=== PATIENT | male | born 1985 | race Caucasian/White ===

== ENCOUNTER 2020-06-18 14:47 | Emergency (ER) | payer BC ==
--- NOTE | 2020-06-18 16:25 | RAD ---
XR Chest 1 View Portable History: Cough and shortness of breath Comparison: None. Findings: Abnormal perihilar and peripheral airspace opacities. No pneumothorax. No effusion. No acut e osseous abnormality. Impression: Moderate Covid pneumonia.
[2020-06-18 16:27] LABS: Hemoglobin 14.8 g/dL (14.0-18.0); Mean Corpuscular HGB CONC 36.1 g/dL (32.0-36.0); Mean Corpuscular Hemoglobin 31.1 pg (27.0-31.0); RBC Distribution Width 12.4 % (11.5-14.5); Red Blood Cell (RBC) Count 4.77 mill/uL (4.70-6.10); White Blood Cell (WBC) Count 5.3 thou/uL (4.8-10.8)
[2020-06-18 16:36] LABS: ALT (SGPT) 179 U/L (8-55); AST (SGOT) 183 U/L (5-34); Albumin 4.3 g/dL (3.5-5.0); Alkaline Phosphatase 49 U/L (40-110); Anion Gap 14 mmol/L (10-20); BUN (Urea Nitrogen) 7 mg/dL (8.9-20.6); Bilirubin, Total 0.4 mg/dL (0.2-1.2); Calc. Creatinine Clearance 0 mL/min (70-130); Calcium 8.7 mg/dL (7.8-10.44); Carbon Dioxide 25 mmol/L (22-29); Chloride 104 mmol/L (98-107); Globulin 3.3 g/dL (2.4-3.5); Glucose 142 mg/dL (70-105); Potassium 3.6 mmol/L (3.5-5.1); Protein, Total 7.6 g/dL (6.0-8.3); Sodium 139 mmol/L (136-145)
[2020-06-18 16:42] LABS: Band 11 % (5-11); Lymphocytes 15 % (21-51); MDiff Complete? YES; Mean Platelet Volume 9.3 fL (7.4-10.4); Monocytes 6 % (0-10); Myelocyte 1 % (0-0); Neutrophil 64 % (42-75); Platelet Count 106 thou/uL (130-400); Platelet Morphology Comment Appears Decreased; RBC Morphology Normal; Reactive Lymphocytes 3 % (0-10)
[2020-06-18] MEDS ORDERED: Acetaminophen 325 MG TAB ONE (17:27)
== END 2020-06-18 17:45 | disposition home or self-care (01) ==
LOC: ERS 14:47 → EDBD 14:47 → ERS 17:45
DX: U07.1 COVID-19 (principal); J12.82 Pneumonia due to coronavirus disease 2019; D69.6 Thrombocytopenia, unspecified; R74.01 Elevation of levels of liver transaminase levels
CPT/HCPCS: 36415; 71045; 80053; 85025; 93005

== ENCOUNTER 2020-06-20 01:01 | Inpatient (IN) | payer BC ==
[2020-06-20 01:48] LABS: #Lymphocytes 1.2 thou/uL (1.20-3.40); #Monocytes 0.4 thou/uL (0.11-0.59); #Neutrophils 5.2 thou/uL (1.40-6.50); %Basophils 0.5 % (0.0-1.0); %Eosinophils 0.1 % (0.0-10.0); %Lymphocytes 17.6 % (21.0-51.0); %Monocytes 6.4 % (0.0-10.0); %Neutrophils 75.4 % (42.0-75.0); Hemoglobin 14.8 g/dL (14.0-18.0); Mean Corpuscular HGB CONC 33.6 g/dL (32.0-36.0); Mean Corpuscular Hemoglobin 28.5 pg (27.0-31.0); Mean Corpuscular Volume 84.9 fL (78.0-98.0); Mean Platelet Volume 8.8 fL (7.4-10.4); Platelet Count 141 thou/uL (130-400); RBC Distribution Width 12.4 % (11.5-14.5); Red Blood Cell (RBC) Count 5.17 mill/uL (4.70-6.10); White Blood Cell (WBC) Count 6.9 thou/uL (4.8-10.8)
[2020-06-20 02:12] LABS: ALT (SGPT) 144 U/L (8-55); AST (SGOT) 188 U/L (5-34); Albumin 4.2 g/dL (3.5-5.0); Alkaline Phosphatase 50 U/L (40-110); Anion Gap 16 mmol/L (10-20); BUN (Urea Nitrogen) 12 mg/dL (8.9-20.6); Bilirubin, Total 0.6 mg/dL (0.2-1.2); Calc. Creatinine Clearance 0 mL/min (70-130); Calcium 9.9 mg/dL (7.8-10.44); Carbon Dioxide 29 mmol/L (22-29); Chloride 99 mmol/L (98-107); Globulin 3.6 g/dL (2.4-3.5); Glucose 133 mg/dL (70-105); Potassium 3.8 mmol/L (3.5-5.1); Protein, Total 7.8 g/dL (6.0-8.3); Sodium 140 mmol/L (136-145)
[2020-06-20] MEDS ORDERED: Lactated Ringer's 1,000 ML IV SCH (03:56)
[2020-06-20] MEDS ORDERED: Benzonatate 100 MG CAP PO PRN (03:56)
[2020-06-20] MEDS ORDERED: Acetaminophen 325 MG TAB PO PRN (03:56)
[2020-06-20 04:23] VITALS: BMI 31.0
[2020-06-20] MEDS: Acetaminophen 325 MG TAB PO SCH ×3 (08:03→19:30)
[2020-06-20] MEDS: Dexamethasone 4 MG TAB PO SCH (08:04)
[2020-06-20] MEDS: Ibuprofen 800 MG TAB PO SCH ×3 (08:05→23:46)
[2020-06-20] MEDS: Enoxaparin Sodium 40 MG/0.4 ML SYRINGE SC SCH (08:05)
[2020-06-20] MEDS ORDERED: Iopamidol 370 76% 100 ML VIAL ONE (11:06)
[2020-06-20 11:56] LABS: SARS-CoV-2 PCR by NAA DETECTED (NotDetected)
[2020-06-20] MEDS: Calcium Carbonate 500 MG ChewTAB PO PRN (23:45)
[2020-06-21] MEDS: Calcium Carbonate 500 MG ChewTAB PO PRN (04:24)
[2020-06-21] MEDS: Acetaminophen 325 MG TAB PO SCH ×4 (05:00→20:24)
[2020-06-21 05:18] LABS: #Lymphocytes 1.2 thou/uL (1.20-3.40); #Monocytes 0.5 thou/uL (0.11-0.59); #Neutrophils 10.8 thou/uL (1.40-6.50); %Basophils 0.1 % (0.0-1.0); %Lymphocytes 9.6 % (21.0-51.0); %Neutrophils 86.2 % (42.0-75.0); Hemoglobin 13.6 g/dL (14.0-18.0); Mean Corpuscular HGB CONC 31.5 g/dL (32.0-36.0); Mean Corpuscular Hemoglobin 27.2 pg (27.0-31.0); Mean Corpuscular Volume 86.1 fL (78.0-98.0); Mean Platelet Volume 8.9 fL (7.4-10.4); Platelet Count 173 thou/uL (130-400); RBC Distribution Width 12.6 % (11.5-14.5); Red Blood Cell (RBC) Count 5.01 mill/uL (4.70-6.10); White Blood Cell (WBC) Count 12.5 thou/uL (4.8-10.8)
[2020-06-21 05:40] LABS: ALT (SGPT) 137 U/L (8-55); AST (SGOT) 150 U/L (5-34); Albumin 3.7 g/dL (3.5-5.0); Alkaline Phosphatase 53 U/L (40-110); Anion Gap 18 mmol/L (10-20); BUN (Urea Nitrogen) 18 mg/dL (8.9-20.6); Bilirubin, Total 0.7 mg/dL (0.2-1.2); CRP (Inflammatory) 12.65 mg/dL (= or < 0.5); Calc. Creatinine Clearance 172 mL/min (70-130); Calcium 9.1 mg/dL (7.8-10.44); Carbon Dioxide 26 mmol/L (22-29); Chloride 101 mmol/L (98-107); Globulin 3.5 g/dL (2.4-3.5); Glucose 129 mg/dL (70-105); Potassium 3.5 mmol/L (3.5-5.1); Protein, Total 7.2 g/dL (6.0-8.3); Sodium 141 mmol/L (136-145)
[2020-06-21] MEDS ORDERED: Lidocaine 2% Viscous Solution 10 ML, Aluminum & Magnesium Hydroxide 30 ML SSW SCH (08:45)
[2020-06-21] MEDS ORDERED: Dexamethasone 4 mg/ml Vial SLOW IVP SCH (09:00)
[2020-06-21] MEDS ORDERED: Dexamethasone 20 MG/5 ML VIAL SLOW IVP SCH (09:00)
[2020-06-21] MEDS: Ibuprofen 800 MG TAB PO SCH ×3 (09:51→23:50)
[2020-06-21] MEDS: Enoxaparin Sodium 40 MG/0.4 ML SYRINGE SC SCH ×2 (09:55→20:25)
[2020-06-21] MEDS: Dexamethasone 4 MG TAB PO SCH (13:47)
[2020-06-21] MEDS ORDERED: REMDESIVIR (EUA) 200 MG in Sodium Chloride 0.9% 250 ML 210 ML IV SCH (17:15)
[2020-06-21] MEDS: Mometasone 200 MCG/Formoterol 5 MCG 120 PUFF INHALER INH SCH (18:20)
[2020-06-21] MEDS: Famotidine 20 MG TAB PO SCH (20:24)
[2020-06-21] MEDS: Dexamethasone 4 mg/ml Vial SLOW IVP SCH (20:25)
[2020-06-22] MEDS: Acetaminophen 325 MG TAB PO SCH ×4 (01:29→19:54)
[2020-06-22] MEDS: Benzonatate 100 MG CAP PO PRN ×2 (04:51→20:43)
[2020-06-22 05:39] LABS: ALT (SGPT) 139 U/L (8-55); AST (SGOT) 131 U/L (5-34); Albumin 3.4 g/dL (3.5-5.0); Alkaline Phosphatase 66 U/L (40-110); Anion Gap 15 mmol/L (10-20); BUN (Urea Nitrogen) 18 mg/dL (8.9-20.6); Bilirubin, Total 0.9 mg/dL (0.2-1.2); Calc. Creatinine Clearance 195 mL/min (70-130); Calcium 8.5 mg/dL (7.8-10.44); Carbon Dioxide 27 mmol/L (22-29); Chloride 104 mmol/L (98-107); Globulin 3.3 g/dL (2.4-3.5); Glucose 143 mg/dL (70-105); Potassium 3.9 mmol/L (3.5-5.1); Protein, Total 6.7 g/dL (6.0-8.3); Sodium 142 mmol/L (136-145)
[2020-06-22 05:42] LABS: ALT (SGPT) 138 U/L (8-55); AST (SGOT) 130 U/L (5-34); Albumin 3.4 g/dL (3.5-5.0); Alkaline Phosphatase 67 U/L (40-110); Bilirubin, Direct 0.5 mg/dL (0.1-0.3); Bilirubin, Total 0.8 mg/dL (0.2-1.2); CRP (Inflammatory) 9.73 mg/dL (= or < 0.5); Protein, Total 6.7 g/dL (6.0-8.3)
[2020-06-22 05:55] LABS: Band 16 % (5-11); Hemoglobin 13.5 g/dL (14.0-18.0); Lymphocytes 20 % (21-51); MDiff Complete? YES; Mean Corpuscular HGB CONC 32.8 g/dL (32.0-36.0); Mean Corpuscular Hemoglobin 28.3 pg (27.0-31.0); Mean Corpuscular Volume 86.2 fL (78.0-98.0); Mean Platelet Volume 9.1 fL (7.4-10.4); Monocytes 9 % (0-10); Neutrophil 55 % (42-75); Platelet Count 211 thou/uL (130-400); Platelet Morphology Comment Appears Adequate; RBC Distribution Width 12.4 % (11.5-14.5); Red Blood Cell (RBC) Count 4.76 mill/uL (4.70-6.10); White Blood Cell (WBC) Count 7.5 thou/uL (4.8-10.8)
[2020-06-22] MEDS: Mometasone 200 MCG/Formoterol 5 MCG 120 PUFF INHALER INH SCH ×2 (06:35→19:55)
[2020-06-22] MEDS: Ibuprofen 800 MG TAB PO SCH ×2 (08:06→19:54)
[2020-06-22] MEDS: Dexamethasone 4 mg/ml Vial SLOW IVP SCH ×2 (08:10→19:55)
[2020-06-22] MEDS: Enoxaparin Sodium 40 MG/0.4 ML SYRINGE SC SCH ×2 (08:10→19:53)
[2020-06-22] MEDS: Famotidine 20 MG TAB PO SCH ×2 (08:10→19:53)
[2020-06-22] MEDS: REMDESIVIR (EUA) 100 MG in Sodium Chloride 0.9% 250 ML 230 ML IV SCH (18:14)
[2020-06-22] MEDS: Colchicine 0.6 MG TAB PO SCH (19:53)
[2020-06-23] MEDS: Ibuprofen 800 MG TAB PO SCH ×3 (00:01→14:43)
[2020-06-23] MEDS: Acetaminophen 325 MG TAB PO SCH ×4 (02:36→20:51)
[2020-06-23 05:19] LABS: ALT (SGPT) 251 U/L (8-55); AST (SGOT) 189 U/L (5-34); Albumin 3.3 g/dL (3.5-5.0); Alkaline Phosphatase 75 U/L (40-110); Anion Gap 12 mmol/L (10-20); BUN (Urea Nitrogen) 22 mg/dL (8.9-20.6); Bilirubin, Total 0.8 mg/dL (0.2-1.2); Calc. Creatinine Clearance 190 mL/min (70-130); Calcium 8.5 mg/dL (7.8-10.44); Carbon Dioxide 28 mmol/L (22-29); Chloride 106 mmol/L (98-107); Globulin 3.1 g/dL (2.4-3.5); Glucose 152 mg/dL (70-105); Potassium 4.3 mmol/L (3.5-5.1); Protein, Total 6.4 g/dL (6.0-8.3); Sodium 142 mmol/L (136-145)
[2020-06-23 05:22] LABS: Band 2 % (5-11); Hemoglobin 13.6 g/dL (14.0-18.0); Lymphocytes 10 % (21-51); MDiff Complete? YES; Mean Corpuscular HGB CONC 32.6 g/dL (32.0-36.0); Mean Corpuscular Volume 88.8 fL (78.0-98.0); Mean Platelet Volume 9.2 fL (7.4-10.4); Monocytes 17 % (0-10); Neutrophil 69 % (42-75); Platelet Count 222 thou/uL (130-400); Platelet Morphology Comment Appears Adequate; RBC Distribution Width 12.2 % (11.5-14.5); RBC Morphology Normal; Reactive Lymphocytes 2 % (0-10); Red Blood Cell (RBC) Count 4.69 mill/uL (4.70-6.10); White Blood Cell (WBC) Count 8.6 thou/uL (4.8-10.8)
[2020-06-23] MEDS: Mometasone 200 MCG/Formoterol 5 MCG 120 PUFF INHALER INH SCH (05:45)
[2020-06-23] MEDS: Colchicine 0.6 MG TAB PO SCH ×2 (09:39→20:52)
[2020-06-23] MEDS: Dexamethasone 4 mg/ml Vial SLOW IVP SCH ×2 (09:40→20:50)
[2020-06-23] MEDS: Enoxaparin Sodium 40 MG/0.4 ML SYRINGE SC SCH ×2 (09:40→20:50)
[2020-06-23] MEDS: Famotidine 20 MG TAB PO SCH ×2 (09:41→20:52)
[2020-06-23] MEDS: Benzonatate 100 MG CAP PO PRN (17:30)
[2020-06-23] MEDS: REMDESIVIR (EUA) 100 MG in Sodium Chloride 0.9% 250 ML 230 ML IV SCH (17:32)
[2020-06-24] MEDS: Ibuprofen 800 MG TAB PO SCH ×4 (00:26→23:41)
[2020-06-24] MEDS: Acetaminophen 325 MG TAB PO SCH ×4 (04:37→22:59)
[2020-06-24] MEDS: Mometasone 200 MCG/Formoterol 5 MCG 120 PUFF INHALER INH SCH ×2 (05:54→18:50)
[2020-06-24 06:05] LABS: Hemoglobin 13.5 g/dL (14.0-18.0); Mean Corpuscular HGB CONC 33.5 g/dL (32.0-36.0); Mean Corpuscular Hemoglobin 28.8 pg (27.0-31.0); Mean Platelet Volume 9.3 fL (7.4-10.4); Platelet Count 274 thou/uL (130-400); RBC Distribution Width 12.1 % (11.5-14.5); Red Blood Cell (RBC) Count 4.68 mill/uL (4.70-6.10); White Blood Cell (WBC) Count 11.8 thou/uL (4.8-10.8)
[2020-06-24 06:15] LABS: ALT (SGPT) 222 U/L (8-55); AST (SGOT) 104 U/L (5-34); Albumin 3.2 g/dL (3.5-5.0); Alkaline Phosphatase 72 U/L (40-110); Anion Gap 13 mmol/L (10-20); BUN (Urea Nitrogen) 25 mg/dL (8.9-20.6); Bilirubin, Direct 0.4 mg/dL (0.1-0.3); Bilirubin, Total 0.8 mg/dL (0.2-1.2); CRP (Inflammatory) 1.64 mg/dL (= or < 0.5); Calc. Creatinine Clearance 193 mL/min (70-130); Calcium 8.3 mg/dL (7.8-10.44); Carbon Dioxide 26 mmol/L (22-29); Chloride 105 mmol/L (98-107); Glucose 143 mg/dL (70-105); Potassium 4.3 mmol/L (3.5-5.1); Protein, Total 6.2 g/dL (6.0-8.3); Sodium 140 mmol/L (136-145)
[2020-06-24 06:34] LABS: Band 1 % (5-11); Lymphocytes 16 % (21-51); MDiff Complete? YES; Monocytes 5 % (0-10); Neutrophil 76 % (42-75); RBC Morphology Normal; Reactive Lymphocytes 2 % (0-10)
[2020-06-24] MEDS: Famotidine 20 MG TAB PO SCH ×2 (07:39→20:12)
[2020-06-24] MEDS: Colchicine 0.6 MG TAB PO SCH ×2 (07:39→20:13)
[2020-06-24] MEDS: Enoxaparin Sodium 40 MG/0.4 ML SYRINGE SC SCH ×2 (07:40→20:12)
[2020-06-24] MEDS: Dexamethasone 4 mg/ml Vial SLOW IVP SCH ×2 (07:40→20:12)
[2020-06-24] MEDS: REMDESIVIR (EUA) 100 MG in Sodium Chloride 0.9% 250 ML 230 ML IV SCH (18:45)
[2020-06-25] MEDS: Acetaminophen 325 MG TAB PO SCH ×4 (02:05→21:16)
[2020-06-25 05:28] LABS: ALT (SGPT) 202 U/L (8-55); AST (SGOT) 80 U/L (5-34); Albumin 3.2 g/dL (3.5-5.0); Alkaline Phosphatase 70 U/L (40-110); Anion Gap 12 mmol/L (10-20); BUN (Urea Nitrogen) 23 mg/dL (8.9-20.6); Bilirubin, Total 0.7 mg/dL (0.2-1.2); Calc. Creatinine Clearance 193 mL/min (70-130); Carbon Dioxide 23 mmol/L (22-29); Chloride 108 mmol/L (98-107); Globulin 2.9 g/dL (2.4-3.5); Glucose 132 mg/dL (70-105); Potassium 4.1 mmol/L (3.5-5.1); Protein, Total 6.1 g/dL (6.0-8.3); Sodium 139 mmol/L (136-145)
[2020-06-25 05:47] LABS: Band 3 % (5-11); Hemoglobin 13.3 g/dL (14.0-18.0); Lymphocytes 14 % (21-51); MDiff Complete? YES; Mean Corpuscular HGB CONC 33.4 g/dL (32.0-36.0); Mean Corpuscular Hemoglobin 28.4 pg (27.0-31.0); Mean Corpuscular Volume 85.1 fL (78.0-98.0); Mean Platelet Volume 9.1 fL (7.4-10.4); Monocytes 6 % (0-10); Myelocyte 2 % (0-0); Neutrophil 74 % (42-75); Platelet Count 302 thou/uL (130-400); RBC Distribution Width 11.8 % (11.5-14.5); Reactive Lymphocytes 1 % (0-10); Red Blood Cell (RBC) Count 4.68 mill/uL (4.70-6.10); White Blood Cell (WBC) Count 14.1 thou/uL (4.8-10.8)
[2020-06-25] MEDS: Mometasone 200 MCG/Formoterol 5 MCG 120 PUFF INHALER INH SCH ×3 (08:33→18:30)
[2020-06-25] MEDS: Dexamethasone 4 mg/ml Vial SLOW IVP SCH ×3 (08:48→21:18)
[2020-06-25] MEDS: Famotidine 20 MG TAB PO SCH ×3 (08:48→21:18)
[2020-06-25] MEDS: Colchicine 0.6 MG TAB PO SCH ×3 (08:48→21:19)
[2020-06-25] MEDS: Enoxaparin Sodium 40 MG/0.4 ML SYRINGE SC SCH ×2 (08:49→21:13)
[2020-06-25] MEDS: Benzonatate 100 MG CAP PO PRN ×2 (08:52→22:39)
[2020-06-25] MEDS: Ibuprofen 800 MG TAB PO SCH ×2 (17:04→22:46)
[2020-06-25] MEDS: REMDESIVIR (EUA) 100 MG in Sodium Chloride 0.9% 250 ML 230 ML IV SCH (17:32)
[2020-06-25] MEDS ORDERED: Melatonin 3 MG TAB PO PRN (17:57)
[2020-06-25] MEDS ORDERED: Dexamethasone 4 mg/ml Vial ONE ×2 (21:04→21:09)
[2020-06-26] MEDS: Ibuprofen 800 MG TAB PO SCH ×3 (02:17→15:21)
[2020-06-26 04:58] LABS: #Basophils 0.2 thou/uL (0.0-0.2); #Lymphocytes 1.5 thou/uL (1.20-3.40); #Monocytes 0.8 thou/uL (0.11-0.59); #Neutrophils 13.9 thou/uL (1.40-6.50); %Basophils 0.9 % (0.0-1.0); %Eosinophils 0.2 % (0.0-10.0); %Lymphocytes 9.1 % (21.0-51.0); %Monocytes 4.8 % (0.0-10.0); Hemoglobin 13.7 g/dL (14.0-18.0); Mean Corpuscular HGB CONC 32.3 g/dL (32.0-36.0); Mean Corpuscular Hemoglobin 27.6 pg (27.0-31.0); Mean Corpuscular Volume 85.5 fL (78.0-98.0); Platelet Count 350 thou/uL (130-400); Red Blood Cell (RBC) Count 4.95 mill/uL (4.70-6.10); White Blood Cell (WBC) Count 16.3 thou/uL (4.8-10.8)
[2020-06-26 05:13] LABS: ALT (SGPT) 180 U/L (8-55); AST (SGOT) 64 U/L (5-34); Albumin 3.3 g/dL (3.5-5.0); Alkaline Phosphatase 67 U/L (40-110); Anion Gap 13 mmol/L (10-20); BUN (Urea Nitrogen) 19 mg/dL (8.9-20.6); Bilirubin, Total 0.7 mg/dL (0.2-1.2); Calc. Creatinine Clearance 188 mL/min (70-130); Calcium 8.2 mg/dL (7.8-10.44); Carbon Dioxide 21 mmol/L (22-29); Chloride 110 mmol/L (98-107); Globulin 2.9 g/dL (2.4-3.5); Glucose 129 mg/dL (70-105); Potassium 4.6 mmol/L (3.5-5.1); Protein, Total 6.2 g/dL (6.0-8.3); Sodium 139 mmol/L (136-145)
[2020-06-26] MEDS: Acetaminophen 325 MG TAB PO SCH ×4 (06:09→20:55)
[2020-06-26] MEDS: Mometasone 200 MCG/Formoterol 5 MCG 120 PUFF INHALER INH SCH ×2 (07:20→18:04)
[2020-06-26] MEDS: Enoxaparin Sodium 40 MG/0.4 ML SYRINGE SC SCH ×2 (08:46→20:43)
[2020-06-26] MEDS: Famotidine 20 MG TAB PO SCH ×2 (08:46→20:44)
[2020-06-26] MEDS: Colchicine 0.6 MG TAB PO SCH ×2 (08:46→20:43)
[2020-06-26] MEDS: Dexamethasone 4 mg/ml Vial SLOW IVP SCH (08:47)
[2020-06-26] MEDS: methylPREDNISolone Sod Succ/PF 125 MG/2 ML VIAL IVP SCH ×2 (18:05→23:46)
[2020-06-26] MEDS: Melatonin 3 MG TAB PO SCH (20:44)
[2020-06-26] MEDS: Enoxaparin Sodium 100 MG/ML SYRINGE SC SCH (20:53)
[2020-06-27] MEDS: Ibuprofen 800 MG TAB PO SCH ×2 (00:15)
[2020-06-27 05:22] LABS: #Basophils 0.1 thou/uL (0.0-0.2); #Eosinphils 0.1 thou/uL (0.0-0.7); #Monocytes 0.5 thou/uL (0.11-0.59); #Neutrophils 10.8 thou/uL (1.40-6.50); %Eosinophils 0.6 % (0.0-10.0); %Monocytes 3.7 % (0.0-10.0); %Neutrophils 86.7 % (42.0-75.0); Mean Corpuscular HGB CONC 33.8 g/dL (32.0-36.0); Mean Corpuscular Hemoglobin 29.1 pg (27.0-31.0); Mean Platelet Volume 8.8 fL (7.4-10.4); Platelet Count 352 thou/uL (130-400); RBC Distribution Width 12.1 % (11.5-14.5); White Blood Cell (WBC) Count 12.5 thou/uL (4.8-10.8)
[2020-06-27 05:42] LABS: ALT (SGPT) 143 U/L (8-55); AST (SGOT) 36 U/L (5-34); Albumin 3.4 g/dL (3.5-5.0); Alkaline Phosphatase 67 U/L (40-110); Anion Gap 11 mmol/L (10-20); BUN (Urea Nitrogen) 21 mg/dL (8.9-20.6); Bilirubin, Total 0.7 mg/dL (0.2-1.2); Calc. Creatinine Clearance 183 mL/min (70-130); Calcium 8.3 mg/dL (7.8-10.44); Carbon Dioxide 23 mmol/L (22-29); Chloride 109 mmol/L (98-107); Globulin 3.1 g/dL (2.4-3.5); Glucose 149 mg/dL (70-105); Potassium 4.3 mmol/L (3.5-5.1); Protein, Total 6.5 g/dL (6.0-8.3); Sodium 139 mmol/L (136-145)
[2020-06-27] MEDS: methylPREDNISolone Sod Succ/PF 125 MG/2 ML VIAL IVP SCH (05:53)
[2020-06-27] MEDS: Acetaminophen 325 MG TAB PO SCH ×4 (06:37→20:50)
[2020-06-27] MEDS: Colchicine 0.6 MG TAB PO SCH ×2 (08:11→20:51)
[2020-06-27] MEDS: Famotidine 20 MG TAB PO SCH (08:11)
[2020-06-27] MEDS: Enoxaparin Sodium 100 MG/ML SYRINGE SC SCH (08:11)
[2020-06-27] MEDS: Mometasone 200 MCG/Formoterol 5 MCG 120 PUFF INHALER INH SCH ×2 (08:13→18:49)
[2020-06-27] MEDS ORDERED: Ibuprofen 800 MG TAB PO PRN (09:01)
[2020-06-27] MEDS ORDERED: Pantoprazole 40 MG VIAL IVP SCH (09:15)
[2020-06-27] MEDS ORDERED: Sodium Chloride 0.9% (PF) 10 ML VIAL FS PRN (09:45)
[2020-06-27] MEDS: Dexamethasone 4 mg/ml Vial SLOW IVP SCH ×2 (09:46→20:51)
[2020-06-27] MEDS: Benzonatate 100 MG CAP PO PRN ×2 (11:06→20:51)
[2020-06-27] MEDS: Enoxaparin Sodium 40 MG/0.4 ML SYRINGE SC SCH (20:50)
[2020-06-27] MEDS: Melatonin 3 MG TAB PO SCH (20:51)
[2020-06-27] MEDS: Doxycycline 100 MG CAP PO SCH (20:54)
[2020-06-27] MEDS ORDERED: Melatonin 3 MG TAB PO PRN (22:13)
[2020-06-28] MEDS: Acetaminophen 325 MG TAB PO SCH ×2 (02:00→09:16)
[2020-06-28 06:50] LABS: #Basophils 0.1 thou/uL (0.0-0.2); #Eosinphils 0.1 thou/uL (0.0-0.7); #Lymphocytes 1.3 thou/uL (1.20-3.40); #Monocytes 0.9 thou/uL (0.11-0.59); #Neutrophils 15.1 thou/uL (1.40-6.50); %Basophils 0.8 % (0.0-1.0); %Eosinophils 0.4 % (0.0-10.0); %Lymphocytes 7.3 % (21.0-51.0); %Monocytes 5.2 % (0.0-10.0); %Neutrophils 86.2 % (42.0-75.0); Hemoglobin 14.4 g/dL (14.0-18.0); Mean Corpuscular HGB CONC 33.3 g/dL (32.0-36.0); Mean Corpuscular Hemoglobin 28.8 pg (27.0-31.0); Mean Corpuscular Volume 86.3 fL (78.0-98.0); Mean Platelet Volume 8.7 fL (7.4-10.4); Platelet Count 367 thou/uL (130-400); RBC Distribution Width 12.5 % (11.5-14.5); White Blood Cell (WBC) Count 17.5 thou/uL (4.8-10.8)
[2020-06-28 07:12] LABS: ALT (SGPT) 123 U/L (8-55); AST (SGOT) 35 U/L (5-34); Albumin 3.5 g/dL (3.5-5.0); Alkaline Phosphatase 65 U/L (40-110); Anion Gap 14 mmol/L (10-20); BUN (Urea Nitrogen) 21 mg/dL (8.9-20.6); Bilirubin, Total 0.8 mg/dL (0.2-1.2); Calc. Creatinine Clearance 185 mL/min (70-130); Calcium 8.6 mg/dL (7.8-10.44); Carbon Dioxide 20 mmol/L (22-29); Chloride 108 mmol/L (98-107); Globulin 2.9 g/dL (2.4-3.5); Glucose 125 mg/dL (70-105); Potassium 4.7 mmol/L (3.5-5.1); Protein, Total 6.4 g/dL (6.0-8.3); Sodium 137 mmol/L (136-145)
[2020-06-28] MEDS: Pantoprazole 40 MG VIAL IVP SCH (07:48)
[2020-06-28] MEDS: Dexamethasone 4 mg/ml Vial SLOW IVP SCH ×2 (07:49→20:48)
[2020-06-28] MEDS: Colchicine 0.6 MG TAB PO SCH ×2 (07:50→20:48)
[2020-06-28] MEDS: Enoxaparin Sodium 40 MG/0.4 ML SYRINGE SC SCH ×2 (07:50→20:48)
[2020-06-28] MEDS: Doxycycline 100 MG CAP PO SCH ×2 (07:50→20:52)
[2020-06-28] MEDS: Mometasone 200 MCG/Formoterol 5 MCG 120 PUFF INHALER INH SCH ×2 (07:52→17:25)
[2020-06-28] MEDS ORDERED: Lorazepam 2 MG/ML VIAL SLOW IVP PRN (08:20)
[2020-06-28] MEDS ORDERED: Enoxaparin Sodium 40 MG/0.4 ML SYRINGE SC SCH (09:00)
[2020-06-28] MEDS: Benzonatate 100 MG CAP PO PRN ×2 (10:20→20:52)
[2020-06-28] MEDS: Melatonin 3 MG TAB PO SCH (20:48)
[2020-06-29 07:12] LABS: #Basophils 0.1 thou/uL (0.0-0.2); #Lymphocytes 0.9 thou/uL (1.20-3.40); #Monocytes 0.5 thou/uL (0.11-0.59); %Basophils 0.8 % (0.0-1.0); %Eosinophils 0.2 % (0.0-10.0); %Lymphocytes 8.6 % (21.0-51.0); %Monocytes 4.6 % (0.0-10.0); %Neutrophils 85.8 % (42.0-75.0); Hemoglobin 14.5 g/dL (14.0-18.0); Mean Corpuscular HGB CONC 33.1 g/dL (32.0-36.0); Mean Corpuscular Hemoglobin 28.4 pg (27.0-31.0); Mean Platelet Volume 8.6 fL (7.4-10.4); Platelet Count 357 thou/uL (130-400); RBC Distribution Width 12.4 % (11.5-14.5); Red Blood Cell (RBC) Count 5.12 mill/uL (4.70-6.10); White Blood Cell (WBC) Count 10.4 thou/uL (4.8-10.8)
[2020-06-29 07:36] LABS: ALT (SGPT) 107 U/L (8-55); AST (SGOT) 32 U/L (5-34); Albumin 3.4 g/dL (3.5-5.0); Alkaline Phosphatase 63 U/L (40-110); Anion Gap 13 mmol/L (10-20); BUN (Urea Nitrogen) 21 mg/dL (8.9-20.6); Bilirubin, Total 0.9 mg/dL (0.2-1.2); Calc. Creatinine Clearance 195 mL/min (70-130); Calcium 8.6 mg/dL (7.8-10.44); Carbon Dioxide 20 mmol/L (22-29); Chloride 108 mmol/L (98-107); Glucose 119 mg/dL (70-105); Potassium 4.6 mmol/L (3.5-5.1); Protein, Total 6.4 g/dL (6.0-8.3); Sodium 136 mmol/L (136-145)
[2020-06-29] MEDS: Mometasone 200 MCG/Formoterol 5 MCG 120 PUFF INHALER INH SCH ×2 (08:07→17:58)
[2020-06-29] MEDS: Colchicine 0.6 MG TAB PO SCH ×2 (08:08→21:12)
[2020-06-29] MEDS: Enoxaparin Sodium 40 MG/0.4 ML SYRINGE SC SCH ×2 (08:08→21:16)
[2020-06-29] MEDS: Doxycycline 100 MG CAP PO SCH ×2 (08:08→21:19)
[2020-06-29] MEDS: Dexamethasone 4 mg/ml Vial SLOW IVP SCH ×2 (08:09→21:19)
[2020-06-29] MEDS: Pantoprazole 40 MG VIAL IVP SCH (08:09)
[2020-06-29] MEDS: Melatonin 3 MG TAB PO SCH (21:13)
[2020-06-29] MEDS: Acetaminophen 325 MG TAB PO PRN (21:14)
[2020-06-29] MEDS: Benzonatate 100 MG CAP PO PRN (21:39)
[2020-06-30] MEDS: Mometasone 200 MCG/Formoterol 5 MCG 120 PUFF INHALER INH SCH ×2 (06:04→18:17)
[2020-06-30] MEDS: Doxycycline 100 MG CAP PO SCH ×2 (09:04→21:36)
[2020-06-30] MEDS: Benzonatate 100 MG CAP PO PRN ×2 (09:05→23:41)
[2020-06-30] MEDS: Dexamethasone 4 mg/ml Vial SLOW IVP SCH (09:05)
[2020-06-30] MEDS: Colchicine 0.6 MG TAB PO SCH ×2 (09:05→21:36)
[2020-06-30] MEDS: Enoxaparin Sodium 40 MG/0.4 ML SYRINGE SC SCH ×2 (09:06→21:36)
[2020-06-30] MEDS: Pantoprazole 40 MG VIAL IVP SCH (09:06)
[2020-06-30] MEDS: Melatonin 3 MG TAB PO SCH (21:36)
[2020-06-30] MEDS: Dexamethasone 4 MG TAB PO SCH (21:37)
[2020-07-01] MEDS: Mometasone 200 MCG/Formoterol 5 MCG 120 PUFF INHALER INH SCH ×2 (06:27→18:34)
[2020-07-01] MEDS: Colchicine 0.6 MG TAB PO SCH ×2 (08:41→21:34)
[2020-07-01] MEDS: Benzonatate 100 MG CAP PO PRN ×2 (08:41→21:34)
[2020-07-01] MEDS: Enoxaparin Sodium 40 MG/0.4 ML SYRINGE SC SCH ×2 (08:42→21:34)
[2020-07-01] MEDS: Dexamethasone 4 MG TAB PO SCH ×2 (08:42→21:34)
[2020-07-01] MEDS: Pantoprazole 40 MG VIAL IVP SCH (08:42)
[2020-07-01] MEDS: Doxycycline 100 MG CAP PO SCH ×2 (08:46→21:34)
[2020-07-01] MEDS: Melatonin 3 MG TAB PO SCH (22:09)
[2020-07-01] MEDS: Acetaminophen 325 MG TAB PO PRN (22:54)
[2020-07-02 05:12] VITALS: TEMP 98
[2020-07-02] MEDS: Mometasone 200 MCG/Formoterol 5 MCG 120 PUFF INHALER INH SCH (05:48)
[2020-07-02 07:40] VITALS: BP 133/82
[2020-07-02] MEDS: Doxycycline 100 MG CAP PO SCH (08:20)
[2020-07-02] MEDS: Pantoprazole 40 MG VIAL IVP SCH (08:21)
[2020-07-02] MEDS: Colchicine 0.6 MG TAB PO SCH (08:21)
[2020-07-02] MEDS: Dexamethasone 4 MG TAB PO SCH (08:21)
[2020-07-02] MEDS: Enoxaparin Sodium 40 MG/0.4 ML SYRINGE SC SCH (08:21)
== END 2020-07-02 15:11 | disposition home or self-care (01) | DRG 871 ==
LOC: ERS 01:01 → ERHOLD 02:30 → 2SW 03:34 → T4-A 06-27 11:29
PROVIDERS: ADMIT Student in an Organized Health Care Education/Training Program; ATTEND Student in an Organized Health Care Education/Training Program
PROC: 8E0ZXY6 Isolation (ICD-10-PCS; 2020-06-20)
PROC: XW13325 Transfusion of Convalescent Plasma (Nonautologous) into Peripheral Vein, Percutaneous Approach, New Technology Group 5 (ICD-10-PCS; principal; 2020-06-21)
PROC: XW033E5 Introduction of Remdesivir Anti-infective into Peripheral Vein, Percutaneous Approach, New Technology Group 5 (ICD-10-PCS; 2020-06-21)
PROC: 5A09357 Assistance with Respiratory Ventilation, Less than 24 Consecutive Hours, Continuous Positive Airway Pressure (ICD-10-PCS; 2020-06-21)
PROC: 5A0955A Assistance with Respiratory Ventilation, Greater than 96 Consecutive Hours, High Flow/Velocity Cannula (ICD-10-PCS; 2020-06-23)
DX: A41.89 Other specified sepsis (principal); U07.1 COVID-19; J12.82 Pneumonia due to coronavirus disease 2019; J96.01 Acute respiratory failure with hypoxia; J98.2 Interstitial emphysema; R74.01 Elevation of levels of liver transaminase levels; M19.90 Unspecified osteoarthritis, unspecified site; K21.9 Gastro-esophageal reflux disease without esophagitis; E66.9 Obesity, unspecified; G47.30 Sleep apnea, unspecified; R73.9 Hyperglycemia, unspecified; Z88.1 Allergy status to other antibiotic agents; Z79.899 Other long term (current) drug therapy; Z79.82 Long term (current) use of aspirin; Z68.31 Body mass index [BMI] 31.0-31.9, adult; Z90.89 Acquired absence of other organs
CPT/HCPCS: 36415; 36430; 71045; 71275; 80053; 80076; 83605; 83880; 84145; 84484; 85025; 85379; 86140; 86850; 86900; 86901; 87040; 87635; 93005; 93010; 94660; 94664; C9113; J1100; J1650; J2930; J3490; J7050; J8540; P9017; Q9967; U0003; U0005

== ENCOUNTER 2020-07-18 12:30 | Outpatient (CLI) | payer BC | END 2020-07-18 12:31 | disposition home or self-care (01) | LOC: BICRAD 12:30 | PROVIDERS: ATTEND Internal Medicine Pulmonary Disease | DX: R06.00 Dyspnea, unspecified (principal); J84.9 Interstitial pulmonary disease, unspecified | CPT/HCPCS: 71046 ==

== ENCOUNTER 2020-10-17 09:04 | Outpatient (CLI) | payer BC | END 2020-10-17 09:05 | disposition home or self-care (01) | LOC: BICRAD 09:04 | PROVIDERS: ATTEND Internal Medicine Pulmonary Disease | DX: R06.00 Dyspnea, unspecified (principal); R91.8 Other nonspecific abnormal finding of lung field | CPT/HCPCS: 71046 ==